=== PATIENT | male | born 2000 | race Caucasian/White ===

== ENCOUNTER 2024-06-10 18:00 | Emergency (ER) | payer OTHER, SELFPAY ==
--- NOTE | 2024-06-10 | ECG_ITS ---
Test Reason : syncope Blood Pressure : / mmHG Vent. Rate : 109 BPM Atrial Rate : 109 BPM P-R Int : 150 ms QRS Dur : 104 ms QT Int : 352 ms P-R-T Axes : 071 017 065 degrees QTc Int : 474 ms Sinus tachycardia Incomplete right bundle branch block Possible Inferior infarct , age undetermined Abnormal ECG No previous ECGs available Referred By: Generic ED Physician Electronically Signed By:SAPPHIRE GIBBS
[2024-06-10 18:09] VITALS: BP 143/87; PULSE 107; O2SAT 99; BMI 21.0
[2024-06-10 18:14] VITALS: BP 128/79; PULSE 111; RESP 18; TEMP 36.8; O2SAT 95
[2024-06-10 18:23] LABS: Basophils Absolute Auto 0.1 X10*3/uL (0.0-0.2); Basophils Percent Auto 0.7 % (0-2); Eosinophils Absolute Auto 0.1 X10*3/uL (0.0-0.4); Eosinophils Percent Auto 0.6 % (0-4); Hemoglobin 12.7 g/dl (14.0-18.0); Imm Gran Abs Auto 0.03 X10*3/uL (0.00-0.03); Imm Gran Pct Auto 0.4 % (0.0-0.4); Lymphocytes Absolute Auto 1.3 X10*3/uL (1.2-4.9); Lymphocytes Percent Auto 15.7 % (20-40); MANUAL DIFF FLAG NO; Mean Corpuscular HGB Conc 37.4 g/dl (31.0-36.0); Mean Corpuscular Hemoglobin 34.8 pg (27.0-33.0); Mean Corpuscular Volume 93.2 fL (80.0-98.0); Mean Platelet Volume 9.5 fL (9.4-12.4); Monocytes Absolute Auto 0.9 X10*3/uL (0.1-1.2); Neutrophils Absolute Auto 6.1 x10*3/uL (2.0-8.3); Neutrophils Percent Auto 71.6 % (45-73); Platelet Count 292 X10*3/uL (160-400); Red Blood Count 3.65 X10*6/uL (4.60-5.80); Red Cell Distribution Width 13.8 % (11.0-16.0); White Blood Count 8.5 X10*3/uL (4.8-10.8)
--- NOTE | 2024-06-10 18:25 | ED.SYNCOPE ---
HPI - Syncope General Chief Complaint: Syncope Stated Complaint: syncopal episode Time Seen by Provider: 06/10/24 18:16 Source: patient Mode of arrival: EMS Limitations: no limitations History of Present Illness ED Provider: MIGUEL HPI narrative: 23 yo male ETOH use and cocaine use remembers going to the bathroom and then had possible unwitnessed seizure he has had one before he thinks related to substances. Last drink was 3 days ago. On arrival to the room he is alert and oriented no signs of head trauma he is anxious appearing but is alert and oriented x 3. He does not want to be here and plans to leave AMA. He is calm and cooperative but states his stuff is at [employer] and he needs to leave. He was offered meds, labs, fluids, treatment for ETOH withdrawal seizure but refuses. complaint: collapsed and seizure Onset (ago): minute(s) Description of event: other (unwitnessed) Prodromal symptoms: none Witnessed: No Context: alcohol use and illicit drug use Injuries sustained associated with event: none Current symptoms: back to baseline History: seizure disorder Treatments prior to arrival: none Related Data Allergies Allergy/AdvReac Type Severity Reaction Status Date / Time No Known Allergies Allergy Verified 06/10/24 18:11 Review of Systems Review of Systems: Constitutional : No Fever, No Chills, No Fatigue ENT/Mouth : No sore throat, No Rhinorrhea Eyes: No Eye Pain, No Swelling, No Redness Cardiovascular : No Chest Pain, No SOB, No Dyspnea on Exertion Respiratory : No Cough, No Sputum Gastrointestinal : No Nausea, No Vomiting, No Diarrhea, No abdominal Pain Genitourinary : No Dysuria, No Urinary Frequency, No Hematuria, Musculoskeletal : No joint pain, No Myalgias, No Joint Swelling Skin : No Skin Lesions, No rash Neuro : No Weakness, No Numbness, No Dizziness, no Headache, pos loss of consciousness Psych : No Anxiety/Panic, No Depression Heme/Lymph: No Bruising, No Bleeding,No Lymphadenopathy Endocrine : No Polyuria, No Polydipsia All other systems reviewed and are negative PMFSH Past Medical History Attestation statement: The following information was validated with the patient. Source: old records reviewed Medical History Misuse of cocaine Alcohol abuse Social History Social History (Updated 06/10/24 @ 18:50 by Chiquita Burt DO) Patient Tobacco Use Status: Current someday Tobacco user Physical Exam Vital Signs: Vital Signs: Last Vital Signs Temp 98.3 F 06/10/24 18:14 Pulse 111 H 06/10/24 18:14 Resp 18 06/10/24 18:14 BP 128/79 06/10/24 18:14 Pulse Ox 95 06/10/24 18:14 O2 Del Method Room Air 06/10/24 18:14 BMI result Body Mass Index 21.0 Appearance: Alert. Oriented X3. No acute distress. anxious Eyes: Pupils equal, round and reactive to light. ENT: Pharynx normal. tongue fasciculations atraumatic Neck: Normal inspection. Neck supple. CVS: tachycardic heart rate and rhythm. Pulses normal. Respiratory: No respiratory distress. Breath sounds normal. Abdomen: Soft and nontender. Skin: Skin warm and dry. Normal skin color. Normal skin turgor. Extremities: No lower extremity edema. No calf ttp Neuro: Oriented X 3. No motor deficit. No sensory deficit. tremors Medical Decision Making Medical Decision Making [facility] Narrative: 23 yo male with ETOH abuse suspect withdrawal seizure offered labs, IVF lytes, fluids, thiamine, phenorbab protocol or any medications to help him. He is alert and oriented on arrival, refuses all treatment. He is requesting immediately to leave AMA. Not intoxicated, no signs of head trauma, alert and oriented, GC15 - aware he could from seizures Differential Diagnosis Differential Diagnoses: The differential diagnosis associated with the presentation includes seizure, alcohol withdrawal seizure, drug abuse, syncope Admission/Observation Consideration of admission/observation: Escalation of care including admission/observation considered refuses admission staying for lab results, IV repletions, ETOH withdrawal protocol wants to leave AMA Lab Data [facility] Lab Attestation statement: I reviewed the patient's lab results. 06/10/24 18:17 06/10/24 18:17 Labs: Lab Results 06/10/24 Range/Units 18:17 WBC 8.5 (4.8-10.8) X10*3/uL RBC 3.65 L (4.60-5.80) X10*6/uL Hgb 12.7 L (14.0-18.0) g/dl Hct 34.0 L (42.0-52.0) % MCV 93.2 (80.0-98.0) fL MCH 34.8 H (27.0-33.0) pg MCHC 37.4 H (31.0-36.0) g/dl RDW 13.8 (11.0-16.0) % Plt Count 292 (160-400) X10*3/uL MPV 9.5 (9.4-12.4) fL Immature Gran % (Auto) 0.4 (0.0-0.4) % Neut % (Auto) 71.6 (45-73) % Lymph % (Auto) 15.7 L (20-40) % [place] % (Auto) 11.0 (2-11) % Eos % (Auto) 0.6 (0-4) % Baso % (Auto) 0.7 (0-2) % Lymph # (Auto) 1.3 (1.2-4.9) X10*3/uL [place] # (Auto) 0.9 (0.1-1.2) X10*3/uL Eos # (Auto) 0.1 (0.0-0.4) X10*3/uL Baso # (Auto) 0.1 (0.0-0.2) X10*3/uL Abs Immat Gran (auto) 0.03 (0.00-0.03) X10*3/uL Absolute Neuts (auto) 6.1 (2.0-8.3) x10*3/uL Absolute Nucleated RBC 0.000 (0.0-0.012) X10*3/uL Nucleated RBC % (auto) 0.0 (0.0-0.2) /100WBC Independent Interpretation I performed an independent interpretation of an: EKG Interpretation: Rate: 109 Rhythm: sinus tachycardia [place]: normal Normal P waves. Normal MURIEL. Normal QRS complex. ST T wave : no ARUN, flat t wave aVL qTC: 474 prior studies: no acute ischemia The study has been interpreted contemporaneously by me. . Independent Historian Clinical information obtained from an independent historian. History obtained from or confirmed by: EMS External Record Review External record reviewed: Inpatient record Discharge Plan Discharge Clinical Impression: Seizure Patient Disposition: Left Against Medical Advice Instructions: Recurrent Seizures in Adults (ED), Against Medical Advice (ED) Additional Instructions: given the history it is advised you stay for labs and treatment of seizure you refused you can come back at any time this could be life threatening. Print Language: Hungarian
--- NOTE | 2024-06-10 18:31 | PC.NURSE ---
lab work/ekg performed. pt verbalizing to this RN that he wants to leave AMA. notified/aware.
[2024-06-10 18:51] LABS: Alanine Aminotransferase 35 U/L (0-40); Albumin Level 4.4 g/dL (3.5-5.0); Alkaline Phosphatase 59 U/L (39-117); Anion Gap 19 (12-20); Aspartate Amino Transferase 43 U/L (5-37); Bilirubin Total 1.2 mg/dL (0.0-1.0); Blood Urea Nitrogen 12 mg/dL (9-16); Calcium 9.4 mg/dL (8.4-10.2); Carbon Dioxide 21 mmol/L (22-29); Chloride 103 mmol/L (96-108); Creatinine Clr Calc Pharmacy 78.4; Estimated Glomerular Filt Rate > 60; Ethanol < 10 mg/dL; Glucose Random 126 mg/dL (60-115); Potassium 2.8 mmol/L (3.3-5.1); Sodium 140 mmol/L (135-145)
--- NOTE | 2024-06-10 18:53 | PC.NURSE ---
pt educated on importance of staying to receive care by this RN as well as Javed NASSAR. pt aware of risks if he leaves AMA. pt continues to decide to leave AMA. paperwork signed - pt now leaving facility.
[2024-06-10 18:54] VITALS: BP 128/79; PULSE 111; RESP 18; TEMP 36.8; O2SAT 95
== END 2024-06-10 18:55 | disposition left against medical advice (07) ==
PROVIDERS: Emergency Provider Emergency Medicine
DX: R56.9 Unspecified convulsions (principal); R00.0 Tachycardia, unspecified; F10.10 Alcohol abuse, uncomplicated; Y90.0 Blood alcohol level of less than 20 mg/100 ml; F17.210 Nicotine dependence, cigarettes, uncomplicated; Z53.29 Procedure and treatment not carried out because of patient's decision for other reasons
CPT/HCPCS: 36415; 80053; 80307; 85025; 93005; 99283; 99284

== ENCOUNTER → 2024-06-10 18:17 | Outpatient (BNV) | payer SELFPAY | PROVIDERS: Emergency Provider Emergency Medicine; Visit Provider Internal Medicine | DX: R55 Syncope and collapse (principal); R00.0 Tachycardia, unspecified; I45.19 Other right bundle-branch block; R94.31 Abnormal electrocardiogram [ECG] [EKG] | CPT/HCPCS: 93010 ==